=== PATIENT | female | born 1960 ===

== ENCOUNTER 2018-03-31 06:09 | Day surgery (SDC) | payer BC, OTHER ==
[~2018-03-31] VITALS: Ht 152.4 cm; Wt 62.2 kg
[2018-03-31] MEDS ORDERED: GLIP10TA13 PO (07:05)
[2018-03-31] MEDS ORDERED: VERA120T5 PO (07:05)
[2018-03-31] MEDS ORDERED: ASCO10004 PO (07:05)
[2018-03-31] MEDS ORDERED: SIMV20TA3 PO (07:05)
[2018-03-31] MEDS ORDERED: BENA20TA54 PO (07:05)
[2018-03-31] MEDS ORDERED: ASPI-496 PO (07:05)
[2018-03-31] MEDS ORDERED: METF500T17 PO (07:05)
[2018-03-31] MEDS ORDERED: SODIUM CHLORIDE 0.9% 1,000 ML IV SCH (07:24)
[2018-03-31 07:25] VITALS: BP 114/78
[2018-03-31 07:39] LABS: INTERNATIONAL NORMALIZED RATIO 0.98 (0.93-1.1); PROTHROMBIN TIME 10.4 Seconds (9.6-11.5)
[2018-03-31] MEDS ORDERED: MIDAZOLAM 1 MG/ML, 5ML ONE (07:45)
[2018-03-31] MEDS ORDERED: FLUMAZENIL 0.1 MG/1 ML, 5ML ONE (07:45)
[2018-03-31] MEDS ORDERED: NALOXONE 1 MG/ML, 2ML ONE (07:45)
[2018-03-31] MEDS ORDERED: FENTANYL PF 100 MCG/2ML ONE (07:45)
[2018-03-31] MEDS ORDERED: LIDOCAINE-MPF 1%, 5ML ONE (07:46)
== END 2018-03-31 11:20 | disposition home or self-care (01) ==
LOC: OUT 06:09
PROVIDERS: ATTEND Internal Medicine Nephrology
DX: R80.9 Proteinuria, unspecified (principal); I10 Essential (primary) hypertension; E11.9 Type 2 diabetes mellitus without complications; Z88.0 Allergy status to penicillin; Z88.8 Allergy status to other drugs, medicaments and biological substances; Z98.890 Other specified postprocedural states; Z79.84 Long term (current) use of oral hypoglycemic drugs
CPT/HCPCS: 36415; 50200; 77012; 85610; 88300; 88329; 99156; 99157; J2250; J3010; J7030; J2310

== ENCOUNTER 2020-08-30 09:05 | Inpatient (IN) | payer BC, OTHER ==
[~2020-08-30] VITALS: Ht 152.4 cm; Wt 62.6 kg
[~2020-08-30 09:05] MED LIST: ASCO100018 PO; ASPI-496 PO; BENA20TA54 PO; BUPIVACAINE/PF 0.5% ONE; EPINEPHRINE 1 MG/ML, 1ML ONE; GLIP10TA13 PO; HEPARIN 1,000 UNITS/ML, 10ML ONE; HEPARIN 5,000 UNITS/ML, 1ML ONE; METF500T17 PO; PROTAMINE SULFATE 10 MG/ML, 5ML ONE; SIMV20TA19 PO; VERA120T13 PO
[2020-08-30] MEDS ORDERED: LACTATED RINGERS 1,000 ML IV SCH ×2 (10:00)
[2020-08-30] MEDS ORDERED: CHLORHEXIDINE 15 ML UDC PO ONE ×2 (10:00)
[2020-08-30] MEDS ORDERED: BENA40TA3 PO (10:11)
[2020-08-30] MEDS ORDERED: VERA120T13 PO (10:11)
[2020-08-30] MEDS ORDERED: CHOL10003 PO (10:11)
[2020-08-30] MEDS ORDERED: METF10007 PO (10:11)
[2020-08-30] MEDS ORDERED: SODI650T PO (10:11)
[2020-08-30] MEDS ORDERED: EXEN2AUT SQ (10:11)
[2020-08-30] MEDS ORDERED: ALIR150P3 SC (10:11)
[2020-08-30] MEDS ORDERED: SIMV20TA19 PO (10:11)
[2020-08-30] MEDS ORDERED: ASPI81TA45 PO (10:11)
[2020-08-30] MEDS ORDERED: GLIP10TA13 PO (10:11)
[2020-08-30] MEDS ORDERED: PRED10TA PO (10:11)
[2020-08-30] MEDS ORDERED: TACR1CAP5 PO (10:11)
[2020-08-30] MEDS ORDERED: ASCO100018 PO (10:11)
[2020-08-30] MEDS ORDERED: CHLORHEXIDINE 15 ML UDC ONE (10:11)
[2020-08-30 10:12] VITALS: BP 143/90
[2020-08-30 10:22] LABS: BASOPHILS % (AUTO) 1 % (0-1); EOSINOPHILS % (AUTO) 1 % (1-7); LYMPHOCYTES % (AUTO) 25 % (22-44); MEAN CORPUSCULAR HEMOGLOBIN 37.1 pg (27.0-34.8); MEAN CORPUSCULAR HGB CONC 34.8 g/dL (32.4-35.8); MEAN PLATELET VOLUME 6.9 fL (7.4-10.4); MONOCYTES % (AUTO) 5 % (2-9); NEUTROPHILS % (AUTO) 69 % (42-75); PLATELET COUNT 204 x10^3/uL (130-400); RED BLOOD COUNT 4.21 x10^6/uL (3.82-5.3); RED CELL DISTRIBUTION WIDTH 14.2 % (9.6-15.2)
[2020-08-30 10:27] LABS: ALBUMIN 3.9 g/dL (3.4-5.0); ANION GAP 5 mmol/L (5-15); CALCIUM 9.4 mg/dL (8.5-10.1); CHLORIDE 107 mmol/L (98-107)
[2020-08-30 10:30] LABS: ALANINE AMINOTRANSFERASE 32 U/L (12-78); ALKALINE PHOSPHATASE 115 U/L (45-117); CREATININE 0.91 mg/dL (0.55-1.02); TOTAL PROTEIN 7.7 g/dL (6.4-8.2)
[2020-08-30] MEDS ORDERED: FENTANYL PF 250 MCG/5ML ONE (10:31)
[2020-08-30] MEDS ORDERED: MIDAZOLAM 1 MG/ML, 2ML ONE (10:31)
[2020-08-30] MEDS ORDERED: OXYcodone 5 MG/5 ML ORAL.SOL UDC PO PRN (12:30)
[2020-08-30] MEDS ORDERED: LABETALOL 5MG/ML, 20ML IV PRN (12:30)
[2020-08-30] MEDS ORDERED: ONDANSETRON 2MG/ML, 2ML IVPush PRN (12:30)
[2020-08-30] MEDS ORDERED: ACETAMINOPHEN 325 MG TABLET PO PRN (12:30)
[2020-08-30] MEDS ORDERED: hydrALAzine 20 MG/ML, 1ML IV PRN (12:30)
[2020-08-30] MEDS ORDERED: HYDROmorphone 1 MG/ML, 1ML INJ IVPush PRN (12:30)
[2020-08-30] MEDS ORDERED: PROMETHAZINE 25 MG/ML, 1ML IVPush PRN (12:30)
[2020-08-30] MEDS ORDERED: ROCURONIUM 10MG/ML,5ML ONE (13:20)
[2020-08-30] MEDS ORDERED: PROPOFOL 10 MG/ML, 20ML ONE (13:20)
[2020-08-30] MEDS ORDERED: DEXAMETHASONE 4 MG/ML, 5ML ONE (13:21)
[2020-08-30] MEDS ORDERED: ONDANSETRON 2MG/ML, 2ML ONE (13:21)
[2020-08-30] MEDS ORDERED: PHENYLEPHRINE 10 MG/ML ONE (13:21)
[2020-08-30] MEDS ORDERED: FENTANYL PF 100 MCG/2ML ONE (14:13)
[2020-08-30] MEDS: FENTANYL PF 100 MCG/2ML IV PRN ×3 (14:15→14:46)
[2020-08-30] MEDS ORDERED: ONDANSETRON 2MG/ML, 2ML IV PRN (16:00)
[2020-08-30] MEDS: LACTATED RINGERS 1,000 ML IV SCH ×2 (16:00→23:49)
[2020-08-30] MEDS: morphine SULFATE 10 MG/ML, 1ML IV PRN ×3 (16:01→20:14)
[2020-08-30] MEDS: [UNRECOGNIZED DRUG - REMARK] MC SCH ×3 (16:30→17:07)
[2020-08-30] MEDS: SODIUM BICARBONATE 650 MG TABLET PO SCH (20:13)
[2020-08-30] MEDS: TACROLIMUS 1 MG CAPSULE PO SCH (20:13)
[2020-08-30 20:27] VITALS: BP 123/79
[2020-08-30] MEDS ORDERED: SIMVASTATIN 20 MG TABLET PO SCH (21:00)
[2020-08-30] MEDS: INSULIN REGULAR, HUMAN 100 UNITS/ML, 3ML MEDIUM DOSE SS SQ-INSULIN SCH (21:05)
[2020-08-30 23:59] VITALS: BP 145/80
[2020-08-31] MEDS: morphine SULFATE 10 MG/ML, 1ML IV PRN ×4 (00:02→11:09)
[2020-08-31 04:08] VITALS: BP 148/74
[2020-08-31] MEDS ORDERED: HEPARIN 5,000 UNITS/ML, 1ML SQ SCH (06:00)
[2020-08-31] MEDS ORDERED: ASPIRIN 81 MG TABLET EC PO SCH (06:00)
[2020-08-31 06:30] VITALS: BP 141/80
[2020-08-31] MEDS ORDERED: HOME MED SHEET MC SCH ×2 (07:00)
[2020-08-31] MEDS: INSULIN REGULAR, HUMAN 100 UNITS/ML, 3ML MEDIUM DOSE SS SQ-INSULIN SCH ×2 (07:00→11:05)
[2020-08-31] MEDS: SODIUM BICARBONATE 650 MG TABLET PO SCH (08:26)
[2020-08-31] MEDS: TACROLIMUS 1 MG CAPSULE PO SCH (08:26)
[2020-08-31] MEDS ORDERED: VERAPAMIL 120MG TABLET PO SCH (09:00)
[2020-08-31] MEDS ORDERED: ASCORBIC ACID 500 MG TABLET PO SCH (09:00)
[2020-08-31] MEDS ORDERED: CHOLECALCIFEROL 1,000 UNIT TABLET PO SCH (09:00)
[2020-08-31] MEDS ORDERED: BENAZEPRIL 20 MG TABLET PO SCH (09:00)
[2020-08-31] MEDS: LACTATED RINGERS 1,000 ML IV SCH (11:05)
== END 2020-08-31 12:21 | disposition home or self-care (01) | DRG 269 ==
LOC: ORIP 09:05 → UNDOADMIN 09:14 → EDSTATUS 11:30 → 4NE 15:08
PROVIDERS: ADMIT Surgery; ATTEND Surgery
PROC: B41D1ZZ Fluoroscopy of Aorta and Bilateral Lower Extremity Arteries using Low Osmolar Contrast (ICD-10-PCS; 2020-08-30)
PROC: 04HY32Z Insertion of Monitoring Device into Lower Artery, Percutaneous Approach (ICD-10-PCS; 2020-08-30)
PROC: 04V03DZ Restriction of Abdominal Aorta with Intraluminal Device, Percutaneous Approach (ICD-10-PCS; principal; 2020-08-30 11:30)
DX: I71.4 Abdominal aortic aneurysm, without rupture (principal); Z00.6 Encounter for examination for normal comparison and control in clinical research program; Z88.0 Allergy status to penicillin; Z88.8 Allergy status to other drugs, medicaments and biological substances; Z79.899 Other long term (current) drug therapy
CPT/HCPCS: 34701; 71045; 80053; 82962; 85025; 86850; 86900; 93005; C1725; G0378; J0171; J1100; J1644; J1815; J2250; J2405; J2704; J2720; J3010; J7507; C1751; C1760; C1768; C1769; C1894; J2270; J2370; J7120; J7512